=== PATIENT | male | born 1975 | race Caucasian/White ===

== ENCOUNTER 2019-04-27 23:54 | Inpatient (IN) ==
[2019-04-28] MEDS ORDERED: KETOROLAC 30 MG/ML VIAL IV STA (00:21)
[2019-04-28] MEDS ORDERED: SODIUM CHLORIDE 0.9% 1000ML 1,000 ML IV SCH (00:30)
[2019-04-28 00:45] LABS: Basophils # (auto) 0.01 K/uL (0-0.2); Basophils % (auto) 0.1 %; Eosinophils # (auto) 0.35 K/uL (0-0.5); Eosinophils % (auto) 3.1 %; Hematocrit (blood only) 35.3 % (42-52); Immature Granulocytes # (auto) 0.07 K/uL (0.00-0.02); Immature Granulocytes % (auto) 0.6 %; Lymphocytes # (auto) 1.23 K/uL (1.2-3.4); Lymphocytes % (auto) 10.8 %; Mean Corpuscular Volume 92.7 fL (80-100); Mean Platelet Volume 8.7 fL (7.4-10.4); Monocytes # (auto) 1.35 K/uL (0.11-0.59); Monocytes % (auto) 11.8 %; Neutrophils % (auto) 73.6 %; Platelet Count 347 K/uL (130-400); RDW Coefficient of Variation 14.1 % (11.5-14.5); RDW Standard Deviation 47.8 fL (36.4-46.3); Red Blood Count 3.81 M/uL (4.7-6.1); White Blood Count 11.41 K/uL (4.8-10.8)
[2019-04-28 01:03] LABS: Alanine Aminotransferase 26 U/L (12-78); Albumin Level 2.2 gm/dl (3.4-5.0); Aspartate Aminotransferase 15 U/L (15-37); BUN Creatinine Ratio 15.1 (10-20); Blood Urea Nitrogen 13 mg/dl (7-18); Calcium 7.9 mg/dl (8.5-10.1); Carbon Dioxide 27 mmol/L (21-32); Chloride 109 mmol/L (98-107); Est GFR (African American) 121.7; Glucose 108 mg/dl (70-99); Magnesium 2.1 mg/dl (1.8-2.4); Potassium 4.1 mmol/L (3.5-5.1); Sodium 139 mmol/L (136-145)
[2019-04-28 01:12] LABS: D Dimer 7550 ug/L FEU (0-500)
[2019-04-28 01:14] LABS: Albumin Globulin Ratio 0.5 (0.9-2); Alkaline Phosphatase 79 U/L (45-117); Bilirubin,Total 0.3 mg/dl (0.2-1); Globulin 4.2 gm/dl (2.5-4.0); Total Protein 6.4 gm/dl (6.4-8.2); Troponin I < 0.015 ng/ml (0-0.045)
[2019-04-28] MEDS ORDERED: OPTIRAY 320 125ml IV PRN (01:42)
[2019-04-28] MEDS ORDERED: PIPERACILL/TAZOBAC CONSULT ACTIVE PRN (03:02)
[2019-04-28] MEDS ORDERED: PIPERACILLIN/TAZOBACTAM 4.5 GM/120 ML BAG IV ONE (03:02)
[2019-04-28] MEDS ORDERED: VANCOMYCIN HCL 1,750 MG in SODIUM CHLORIDE 0.9% 500 ML IV ONE (03:02)
[2019-04-28] MEDS ORDERED: VANCOMYCIN CONSULT ACTIVE PRN ×2 (03:02→05:01)
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
[2019-04-28] MEDS ORDERED: VANCOMYCIN HCL 1,000 MG in SODIUM CHLORIDE 0.9% 250 ML IV SCH (05:01)
[2019-04-28] MEDS ORDERED: ACETAMINOPHEN 325 MG TAB PO PRN (05:01)
[2019-04-28] MEDS ORDERED: ONDANSETRON INJ 2 MG/ML 2 ML VIAL IV PRN (05:01)
[2019-04-28] MEDS ORDERED: ALBUT/IPRATROP 3MG/0.5MG NEB 3 ML VIAL INH PRN (05:01)
[2019-04-28] MEDS ORDERED: MoRPHine SULFATE 4 MG/ML 1 ML CARP\\VIAL IV PRN (05:01)
[2019-04-28] MEDS ORDERED: NITROGLYCERIN SL 0.4 MG/TAB TAB SL PRN (05:01)
[2019-04-28 05:23] LABS: Appearance Urine Clear (Clear); Bacteria Urine Automated Negative (Negative); Bilirubin Urine Negative (Negative); Blood Urine 2+ (Negative); Color Urine Yellow; Epithelial Cell Urine Auto 0-5 /lpf (0-5); Glucose Urine UA Negative (Negative); Ketones Urine Negative (Negative); Leukocyte Esterase Urine Negative (Negative); Nitrite Urine Negative (Negative); Protein Urine Negative (Negative); RBC Urine Automated >30 /hpf (0-4); Specific Gravity Urine 1.025 (1.000-1.030); Urobilinogen Urine Negative (Negative); pH Urine 7.5 (4.5-7.5)
[2019-04-28] MEDS ORDERED: VANCOMYCIN HCL 2,000 MG in SODIUM CHLORIDE 0.9% 500 ML IV ONE (05:30)
[2019-04-28] MEDS ORDERED: LEVOFLOXACIN CONSULT ACTIVE PRN (05:31)
[2019-04-28] MEDS: SODIUM CHLORIDE 0.9% 1000ML 1,000 ML IV SCH ×2 (05:44→20:02)
--- NOTE | 2019-04-28 07:17 | CT Scan Report ---
CT ANGIOGRAM OF THE CHEST CLINICAL HISTORY: Atypical chest pain. Dyspnea. COMPARISON STUDY: Chest x-ray dated 04/28/2019. TECHNIQUE: Following the IV administration of 90 cc of Optiray 320, CT angiogram of the chest was per formed from the upper abdomen to the thoracic inlet utilizing the pulmonary embolus protocol. Images are reviewed in the axial, sagittal, and coronal planes. 3-D MIPS images are created and assessed. IV contrast was administered without complication. A dose lowering technique was utilized adhering to the principles of ALARA. CT DOSE: 452.09 mGy.cm FINDINGS: Thyroid: Imaged portions of the thyroid gland are normal in size and attenuation. Thoracic aorta: The thoracic aorta is normal in caliber and demonstrates standard 3-vessel arch anato my. No dissection is seen. Pulmonary vasculature: The pulmonary trunk is normal in caliber. There are no filling defects identif ied in main, lobar, or segmental pulmonary branches to suggest pulmonary embolus. Heart: The heart is normal in size and there is a moderate pericardial effusion. Lungs and pleural spaces: Mild emphysematous change is identified. There is a multiloculated pleural effusion at the left lung base with associated left basilar consolidation. Loculated fluid is seen al georgina the left major fissure. Trace pleural perfusion is seen on the right. Mild diffuse peribronchial thickening is noted. The trachea and central airways are clear. Fluid/secretions are present within t he left lower lobe airways. Mediastinum: There is no mediastinal lymphadenopathy. Umu: Mildly enlarged left hilar nodes measure up to 13 mm in short axis. No right hilar adenopathy i s seen. Axillae: There is no axillary lymphadenopathy. Upper abdomen: Partially visualized upper abdominal viscera is within normal limits. Skeletal structures: No lytic or blastic bony lesions are seen. IMPRESSION: 1. There is no evidence of pulmonary embolus in the main, lobar, or segmental pulmonary arteries. 2. Emphysema. 3. There is a small and multiloculated pleural effusion identified at the left lung base with [facility] left basilar consolidation. Correlate clinically for evidence of pneumonia. The sterility of the pleural effusion cannot be assessed by CT. 4. Trace pleural fluid is seen in the right lung base. 5. Mild diffuse peribronchial thickening suggests reactive airway disease. Clinical correlation will be required. 6. Fluid/secretions are seen throughout the left lower lobe airways. Correlate clinically for evidenc e of aspiration. 7. There is a moderate pericardial effusion. 8. Mildly enlarged left hilar lymph nodes are likely on a reactive basis. Electronically signed by: Romeo Carranza M.D. 04/28/2019 7:15 AM
--- NOTE | 2019-04-28 07:20 | Hospitalist Progress Note ---
Date of Service April 28, 2019 Assessment & Plan (1) Atypical chest pain: (2) Pleural effusion: (3) Pericardial effusion: Admitted p MN will follow, Pulm to see ROS-No Headache, No Visual Changes, No Nausea, No Vomiting, No Fever, No Chills, No Neck Pain or Stiffness, Pleuritic Chest Pain, No Palpitations, +SOB, +SANCHEZ, +Cough, No Sputum, No Wheezing, No Abdominal Pain, No Diarrhea, No Hematemesis, No Hemoptysis, No Unexpected Weight Loss, No Flank pain, No Melena, No Hematochezia, No Frequency, No Urgency, No Burning, No Hematuria, No Rashes, No Diaphoresis. Appetite is Normal Physical Exam Gen-AAO x 3, NAD, Afebrile Head-NCAT, EOMI, PERRLA, Anicteric Sclera, No Posterior Pharyngeal Erythema Neck-Supple, No JVD, No Thyromegaly, No Masses, No LAD, No Bruits Lungs-L Rales, No Rhonchi, No Wheezing, No Crepitus Chest-No S4, +S1, +S2, No S3, No Murmurs, No Rubs, No Gallops, No Ectopy Abdomen-Soft, Bowel Sounds Present, Non Tender, Non Distended, No Hepatomegaly, No Splenomegaly, No Palpable Masses, No Rebound, No Rigidity, No Guarding Musculoskeletal-Full Range of Motion Bilaterally, No CVAT Extremities-No Cyanosis, No Clubbing, No Edema Nuero-Cranial Nerves II-XII grossly intact, Motor WNL, DTRs WNL, Strength WNL, Non Focal Psych-Normal Mood Results & Data Vital Signs (Past 12 Hours) Vital Signs Temp Pulse Pulse Resp BP BP Pulse Ox 04/28/19 05:16 36.8 C 81 124/77 95 04/28/19 04:13 83 18 131/80 96 04/28/19 03:00 94 H 22 137/84 97 04/28/19 02:30 90 19 126/78 95 04/28/19 02:00 87 25 H 130/76 97 04/28/19 01:42 95 H 26 H 145/82 H 98 04/28/19 01:30 91 H 23 132/83 04/28/19 01:00 107 H 29 H 140/100 97 04/28/19 00:32 100 H 27 H 96 04/28/19 00:30 101 H 30 H 132/78 96 04/27/19 23:57 37.4 C 108 H 18 147/90 H 97
[2019-04-28] MEDS: LEVALBUTEROL TARTRATE 15 GM HFA.AER.AD INH SCH ×4 (08:58→20:01)
[2019-04-28] MEDS: LEVOFLOXACIN/D5W 750 MG/150 ML BAG IV SCH (08:58)
--- NOTE | 2019-04-28 10:32 | XRay Report ---
SINGLE VIEW CHEST CLINICAL HISTORY: Atypical chest pain. FINDINGS: An AP, portable, upright chest radiograph is obtained. No prior studies are available for c omparison at the time of dictation. The examination is degraded by portable technique and patient rot ation. The cardiomediastinal silhouette is unremarkable. There is left basilar consolidation and a s mall left pleural effusion. The right lung appears clear. No pneumothorax is seen. The bony thorax is grossly intact. IMPRESSION: There is a left pleural effusion with left basilar consolidation. Correlate clinically fo r evidence of pneumonia/aspiration pneumonitis. Radiographic follow-up to resolution is recommended. Electronically signed by: Romeo Carranza M.D. 04/28/2019 10:31 AM
[2019-04-28] MEDS: VANCOMYCIN HCL 1,250 MG in SODIUM CHLORIDE 0.9% 250 ML IV SCH ×2 (12:17→20:01)
--- NOTE | 2019-04-28 12:21 | Pulmonary Consultation ---
Date of Consultation April 28, 2019 Assessment & Plan (1) Pleural effusion: Impression: 1. Multiple pockets of small pleural effusion on the left with compressive atelectasis representing empyema versus inflammatory disease. 2. Left lower lobe compressive atelectasis. Is likely a remnant from recently incompletely treated pneumonia. 3. Pericardial effusion, etiology is unknown. But small. 4. Nicotine addiction. 5. COPD, cannot determine gold level. Plan: 1. Consult thoracic surgery for VATS. 2. Pleural effusion is not amenable for thoracentesis. 3. Antibiotic can be changed to oral Levaquin. 4. Smoking cessation. 5. Bronchodilators. Thank you, will follow as needed. History of Present Illness Reason for Consultation: Pleural effusion Requesting Physician: Dr. Edmond Attending Physician: Ramone Grajeda DO History of Present Illness Dear Dr. Edmond: Thank you for the kind referral of Mr. Smith to pulmonary service. This is 43-year-old gentleman active smoker for the past 30 years, history of a week of increasing shortness of breath accompanied with persistent cough. Pleuritic chest pain was reported as well. The patient denies any chest pain, in the substernal area. His symptoms accompanied with low-grade fever reported at the [facility] where [facility] is [facility] resides. The patient did not have history of pneumonia in the past, no hemoptysis reported no postnasal drip no nausea or vomiting reported either. He has no weight loss but he has a lack of appetite. The pain has been persistent and he was recently treated with Augmentin sort of bronchitis. The patient presented to the hospital and underwent work-up which showed loculated pleural effusion on the left with thickened pleura. The patient has no history of tuberculosis, he did not travel or had history of exposure to TB in the past although he has been incarcerated but no symptoms and signs of chronic cough. His past medical history significant for active smoking, chronic bronchitis. He has been given a rescue inhaler which he has not used. Although it did help him once or twice before. He is active smoker with more than [id number] history. Family history consistent with COPD where his mother 6 months ago from COPD exacerbation. Allergies Allergy/AdvReac Type Severity Reaction Status Date / Time No Known Allergies Allergy Unverified 04/28/19 00:42 Home Medications Home Medications Medication Instructions Recorded Confirmed Type ipratropium-albuterol 3 ml INHALATION QID PRN 04/28/19 04/28/19 History levalbuterol tartrate [Xopenex HFA] 2 inh INHALATION QID 04/28/19 04/28/19 History Patient History Social History Preferred Language: Hungarian Communication Ability: Effective Beliefs That Will Affect Care: None Current Living Situation: Other Current Living Situation Comment: [facility] Feels Safe at Home: Yes Smoking Status: Current every day smoker Do You Dip or Chew Tobacco: No Second Hand Exposure: No Review of Systems Review of Systems: Review of system otherwise was unremarkable including 14 systems. Physical Exam Physical Exam: Vital signs are stable, S1-S2 regular rate and rhythm, lungs with diminished breath sounds bilaterally, abdomen is benign, no edema in the periphery, neurologically is intact, he is in good mood, competent to make a decision, no oral lesions, no constitutional symptoms. No lymphadenopathy in the neck area. Results & Data Vital Signs (Past 12 Hours) Vital Signs Temp Pulse Pulse Resp BP BP Pulse Ox 04/28/19 09:00 76 04/28/19 08:24 37.4 C 85 19 149/88 H 96 04/28/19 05:16 36.8 C 81 124/77 95 04/28/19 04:13 83 18 131/80 96 04/28/19 03:00 94 H 22 137/84 97 04/28/19 02:30 90 19 126/78 95 04/28/19 02:00 87 25 H 130/76 97 04/28/19 01:42 95 H 26 H 145/82 H 98 04/28/19 01:30 91 H 23 132/83 04/28/19 01:00 107 H 29 H 140/100 97 04/28/19 00:32 100 H 27 H 96 04/28/19 00:30 101 H 30 H 132/78 96 Laboratory Results Slight leukocytosis, left shift but no bandemia. His BMP are stable. Diagnostic Findings Chest x-ray and CAT scan of the chest both reviewed personally which showed loculated pleural effusion with multiple pockets affecting the left lower lobe with compressive atelectasis.
--- NOTE | 2019-04-28 15:13 | Pharmacy Report ---
Pharmacy Abx Initial Consult - Date of Service April 28, 2019 - Pharmacy Dosing Scope Date of Consult: 04/28/19 Consultation requested by: Dr. Edmond Pharmacy is consulted to initiate Vancomycin and Levaquin IV dosing therapy, order appropriate labs and adjust drug dose/frequency. - Subjective The patient is a 43 year old M admitted on 04/28/19 03:38. - Objective Height: 6 ft 2 in Weight: 89.2 kg Vital Signs (Past 12hrs): Vital Signs Temp Pulse Pulse Resp BP BP Pulse Ox 04/28/19 12:49 37.0 C 88 19 144/85 H 97 04/28/19 09:00 76 04/28/19 08:24 37.4 C 85 19 149/88 H 96 04/28/19 05:16 36.8 C 81 124/77 95 04/28/19 04:13 83 18 131/80 96 04/28/19 03:00 94 H 22 137/84 97 Lab Results (24hrs): Laboratory Tests (24 Hours) 04/28/19 04/28/19 00:37 00:37 WBC 11.41 H Neut # (Auto) 8.40 H Creatinine 0.87 Est Cr Clr Drug Dosing 126.0 Micro Results: 04/28/19 12:15 Gram Stain - Final Sputum, Expectorated Sputum Culture - Pending 04/28/19 00:37 Aerobic Blood Culture - Pending Blood Anaerobic Blood Culture - Pending 04/28/19 00:53 Aerobic Blood Culture - Pending Blood Anaerobic Blood Culture - Pending - Risk Factors for Resistance * Resident in a alf or extended-care facility -> incarcerated * Recent failed Augmentin prior to admission - Assessment & Plan Assessment 43 year old M on empiric IV Vancomycin and Levaquin for pneumonia after failed outpatient treatment with Augmentin * He received Vancomycin 1750mg (~20mg/kg) IV x 1 as a loading dose in the ED Plan Vancomycin IV * Estimated PK Parameters: Andrea 0.104 hr-1, t1/2 6.7 hr * Maintenance dose: 1250 mg IV (~14 mg/kg) every 8 hours * Goal trough level for pneumonia : 15 to 20 mcg/mL * Trough level ordered for 04/29/19 @ 1130 (prior to 4th dose and should be reflective of steady state) * Note: MRSA nasal swab was negative, indicating that MRSA unlikely cause for pneumonia. Recommend to consider D/C Vancomycin. Levaquin * No renal impairment noted * Levaquin 750mg IV q24 appropriate - no renal adjustments needed Pharmacy will continue to follow and will adjust dose/frequency as necessary. Thank you.
--- NOTE | 2019-04-29 02:09 | Emergency Department Note ---
History of Present Illness General Chief complaint: GI Assessment Stated complaint: ABD PAIN Time Seen by Provider: 04/28/19 00:06 History of Present Illness Maximum Pain Intensity: 3 This is a 43-year-old male patient presenting from [facility] for evaluation of fever and chest pain. The patient has had some mild symptoms that began about 1 week ago. He put in a sick call and was seen at the [facility] where chest x-ray was performed and was essentially normal. The patient was started on Augmentin, and has been taking the medication as prescribed. The patient does have a history of tobacco use and intermittent coughing, however the coughing seems to be worsened over the past 1 to 2 days. He went back to the [facility] and was noted to have a fever of 101.6, and thus was sent to the ER for evaluation. The patient states that certain movements with laying flat and sitting up improve or worsen his pain. He does have some epigastric abdominal discomfort, but no lower discomfort reported. He has been eating, drinking, and using the bath room as normal. He rates his current discomfort a 3/10. Home Medications Home Medications Medication Instructions Recorded Confirmed Type ipratropium-albuterol 3 ml INHALATION QID PRN 04/28/19 04/28/19 History levalbuterol tartrate [Xopenex HFA] 2 inh INHALATION QID 04/28/19 04/28/19 History Allergies Allergy/AdvReac Type Severity Reaction Status Date / Time No Known Allergies Allergy Unverified 04/28/19 00:42 Past Med/Surg History Medical History Tobacco use disorder No significant past surgical history Social History Preferred Language: Chadian Communication Ability: Effective Beliefs That Will Affect Care: None Current Living Situation: Other Current Living Situation Comment: [facility] Feels Safe at Home: Yes Smoking Status: Current every day smoker Do You Dip or Chew Tobacco: No Second Hand Exposure: No Review of Systems A total of 10 systems reviewed and were otherwise negative Physical Exam Vital Signs Vital Signs - 24 hr 04/28/19 02:30 04/28/19 03:00 Pulse Rate 90 94 H Pulse Rate from SpO2 Sensor 89 93 H Respiratory Rate 19 22 Blood Pressure 126/78 137/84 Blood Pressure Mean 94 101 Pulse Oximetry 95 97 VITALS: Vitals are noted on the nurse's note and reviewed by myself. Vital signs stable. GENERAL: Well-developed, well-nourished, white male, who appears ill HEAD: Normocephalic atraumatic. EARS: External ear normal. External auditory canals clear, tympanic membranes pearly brown without erythema or effusion bilaterally. EYES: Pupils equal round and reactive to light and accommodation. Conjunctivae without injection, sclerae without icterus. Extraocular movements intact. NOSE: Patent, turbinates without inflammation or discharge. MOUTH: Mucous membranes moist. Tonsils are not enlarged. Pharynx without erythema, blood, or exudate. Uvula midline. Airway patent. NECK: Supple without nuchal rigidity. No lymphadenopathy. No thyromegaly. Cervical spine is nontender. HEART: Regular rate and rhythm without murmurs gallops or rubs. LUNGS: Upper lung holm sound distant but overall clear. Significantly diminished lung sounds in the lower holm ABDOMEN: Positive normal bowel sounds x 4. Soft, nontender, without masses or organomegaly. No guarding or rebound tenderness. MUSCULOSKELETAL: No muscle atrophy, erythema, or edema noted. Full range of motion in all extremities. NEURO: Patient was alert and oriented to person place and time. CN II through XII grossly intact. Course Administered Medications Acetaminophen (Tylenol) 650 mg PO Q4H PRN PRN Reason: Pain or Fever Stop: 05/28/19 05:00 Last Admin: 04/28/19 18:03 Dose: 650 mg Documented by: [id number] Levofloxacin/Dextrose (Levaquin/D5w) 750 mg in 150 mls @ 100 mls/hr IV Q24H [facility] Stop: 05/05/19 07:59 Last Infusion: 04/28/19 10:30 Dose: 0 mls/hr Documented by: [id number] Admin: 04/28/19 08:58 Dose: 100 mls/hr Documented by: [id number] Sodium Chloride (Nss 1000ml) 1,000 mls @ 75 mls/hr IV .[id number] [facility] Stop: 05/28/19 19:00 Last Admin: 04/28/19 20:02 Dose: 75 mls/hr Documented by: [id number] Infusion: 04/28/19 19:04 Dose: 75 mls/hr Documented by: [id number] Admin: 04/28/19 05:44 Dose: 75 mls/hr Documented by: [id number] Vancomycin HCl 1,250 mg/ (Sodium Chloride) 275 mls @ 125 mls/hr IV Q8H [facility] Stop: 05/05/19 11:59 Last Infusion: 04/28/19 22:30 Dose: 0 mls/hr Documented by: [id number] Admin: 04/28/19 20:01 Dose: 125 mls/hr Documented by: [id number] Infusion: 04/28/19 14:40 Dose: 0 mls/hr Documented by: [id number] Admin: 04/28/19 12:17 Dose: 125 mls/hr Documented by: [id number] Levalbuterol HCl (Xopenex Hfa) 2 puffs INH QID [facility] Stop: 05/28/19 08:59 Last Admin: 04/28/19 20:01 Dose: 2 puffs Documented by: [id number] Admin: 04/28/19 18:02 Dose: 2 puffs Documented by: [id number] Admin: 04/28/19 12:19 Dose: 2 puffs Documented by: [id number] Admin: 04/28/19 08:58 Dose: 2 puffs Documented by: [id number] Discontinued Medications Sodium Chloride (Nss 1000ml) 1,000 mls @ 999 mls/hr IV .Q1H1M [facility] Stop: 04/28/19 01:30 Last Infusion: 04/28/19 02:29 Dose: 0 mls/hr Documented by: [id number] Admin: 04/28/19 01:24 Dose: 999 mls/hr Documented by: [id number] Vancomycin HCl 1,750 mg/ (Sodium Chloride) 535 mls @ 200 mls/hr IV NOW ONE; Protocol Stop: 04/28/19 05:42 Last Infusion: 04/28/19 07:54 Dose: 0 mls/hr Documented by: [id number] Admin: 04/28/19 04:20 Dose: 200 mls/hr Documented by: [id number] Piperacillin Sod/Tazobactam Sod (Zosyn) 4.5 gm in 120 mls @ 240 mls/hr IV NOW ONE Stop: 04/28/19 03:31 Last Infusion: 04/28/19 04:11 Dose: 0 mls/hr Documented by: [id number] Admin: 04/28/19 03:26 Dose: 240 mls/hr Documented by: [id number] Ioversol (Optiray 320 125ml) 90 ml IV ONCE PRN PRN Reason: Interaction Checking Stop: 05/02/19 01:41 Last Admin: 04/28/19 01:43 Dose: 90 ml Documented by: [id number] Ketorolac Tromethamine (Toradol) 30 mg IV NOW STA Stop: 04/28/19 00:22 Last Admin: 04/28/19 01:24 Dose: 30 mg Documented by: [id number] Medical Decision Making Differential Diagnosis Differential diagnosis: Etiologies such as viral syndrome, otitis, pharyngitis, pneumonia, influenza, meningitis, urinary tract infection, septic arthritis, soft tissue infectious process, intra-abdominal process, sepsis, bacteremia, as well as others were entertained. Laboratory Data Result diagrams: 04/28/19 00:37 04/28/19 00:37 Lab Results 04/28/19 04/28/19 04/28/19 Range/Units 00:37 00:37 00:37 WBC 11.41 H (4.8-10.8) K/uL RBC 3.81 L (4.7-6.1) M/uL Hgb 12.0 L (14.0-18.0) g/dL Hct 35.3 L (42-52) % MCV 92.7 (80-100) fL MCH 31.5 (25-34) pg MCHC 34.0 (32-36) g/dL RDW Std Deviation 47.8 H (36.4-46.3) fL RDW Coeff of Jose Antonio 14.1 (11.5-14.5) % Plt Count 347 (130-400) K/uL MPV 8.7 (7.4-10.4) fL Immature Gran % (Auto) 0.6 % Neut % (Auto) 73.6 % Lymph % (Auto) 10.8 % Ector % (Auto) 11.8 % Eos % (Auto) 3.1 % Baso % (Auto) 0.1 % Immature Gran # (Auto) 0.07 H (0.00-0.02) K/uL Neut # (Auto) 8.40 H (1.4-6.5) K/uL Lymph # (Auto) 1.23 (1.2-3.4) K/uL Ector # (Auto) 1.35 H (0.11-0.59) K/uL Eos # (Auto) 0.35 (0-0.5) K/uL Baso # (Auto) 0.01 (0-0.2) K/uL D-Dimer 7550 H* (0-500) ug/L FEU Sodium 139 (136-145) mmol/L Potassium 4.1 (3.5-5.1) mmol/L Chloride 109 H (98-107) mmol/L Carbon Dioxide 27 (21-32) mmol/L Anion Gap 3.0 (3-11) BUN 13 (7-18) mg/dl Creatinine 0.87 (0.6-1.4) mg/dl Est Cr Clr Drug Dosing 126.0 ml/min Est GFR ( Amer) 121.7 Est GFR (Non-Af Amer) 105.0 BUN/Creatinine Ratio 15.1 (10-20) Glucose 108 H (70-99) mg/dl Lactate (0.4-2.0) mmol/L Calcium 7.9 L (8.5-10.1) mg/dl Magnesium 2.1 (1.8-2.4) mg/dl Total Bilirubin 0.3 (0.2-1) mg/dl AST 15 (15-37) U/L ALT 26 (12-78) U/L Alkaline Phosphatase 79 (45-117) U/L Troponin I < 0.015 (0-0.045) ng/ml Total Protein 6.4 (6.4-8.2) gm/dl Albumin 2.2 L (3.4-5.0) gm/dl Globulin 4.2 H (2.5-4.0) gm/dl Albumin/Globulin Ratio 0.5 L (0.9-2) Lipase 83 (73-393) U/L TSH 1.090 (0.300-4.500) uIu/ml 04/28/19 Range/Units 00:37 WBC (4.8-10.8) K/uL RBC (4.7-6.1) M/uL Hgb (14.0-18.0) g/dL Hct (42-52) % MCV (80-100) fL MCH (25-34) pg MCHC (32-36) g/dL RDW Std Deviation (36.4-46.3) fL RDW Coeff of Jose Antonio (11.5-14.5) % Plt Count (130-400) K/uL MPV (7.4-10.4) fL Immature Gran % (Auto) % Neut % (Auto) % Lymph % (Auto) % Ector % (Auto) % Eos % (Auto) % Baso % (Auto) % Immature Gran # (Auto) (0.00-0.02) K/uL Neut # (Auto) (1.4-6.5) K/uL Lymph # (Auto) (1.2-3.4) K/uL Ector # (Auto) (0.11-0.59) K/uL Eos # (Auto) (0-0.5) K/uL Baso # (Auto) (0-0.2) K/uL D-Dimer (0-500) ug/L FEU Sodium (136-145) mmol/L Potassium (3.5-5.1) mmol/L Chloride (98-107) mmol/L Carbon Dioxide (21-32) mmol/L Anion Gap (3-11) BUN (7-18) mg/dl Creatinine (0.6-1.4) mg/dl Est Cr Clr Drug Dosing ml/min Est GFR ( Amer) Est GFR (Non-Af Amer) BUN/Creatinine Ratio (10-20) Glucose (70-99) mg/dl Lactate 1.1 (0.4-2.0) mmol/L Calcium (8.5-10.1) mg/dl Magnesium (1.8-2.4) mg/dl Total Bilirubin (0.2-1) mg/dl AST (15-37) U/L ALT (12-78) U/L Alkaline Phosphatase (45-117) U/L Troponin I (0-0.045) ng/ml Total Protein (6.4-8.2) gm/dl Albumin (3.4-5.0) gm/dl Globulin (2.5-4.0) gm/dl Albumin/Globulin Ratio (0.9-2) Lipase (73-393) U/L TSH (0.300-4.500) uIu/ml Imaging Data Radiologist's Impression: SINGLE VIEW CHEST CLINICAL HISTORY: Atypical chest pain. FINDINGS: An AP, portable, upright chest radiograph is obtained. No prior studies are available for comparison at the time of dictation. The examination is degraded by portable technique and patient rotation. The cardiomediastinal silhouette is unremarkable. There is left basilar consolidation and a small left pleural effusion. The right lung appears clear. No pneumothorax is seen. The bony thorax is grossly intact. IMPRESSION: There is a left pleural effusion with left basilar consolidation. Correlate clinically for evidence of pneumonia/aspiration pneumonitis. Radiographic follow-up to resolution is recommended. CT ANGIOGRAM OF THE CHEST CLINICAL HISTORY: Atypical chest pain. Dyspnea. COMPARISON STUDY: Chest x-ray dated 04/28/2019. TECHNIQUE: Following the IV administration of 90 cc of Optiray 320, CT angiogram of the chest was performed from the upper abdomen to the thoracic inlet utilizing the pulmonary embolus protocol. Images are reviewed in the axial, sagittal, and coronal planes. 3-D MIPS images are created and assessed. IV co ntrast was administered without complication. A dose lowering technique was utilized adhering to the principles of ALARA. CT DOSE: 452.09 mGy.cm FINDINGS: Thyroid: Imaged portions of the thyroid gland are normal in size and attenuation. Thoracic aorta: The thoracic aorta is normal in caliber and demonstrates standard 3-vessel arch anatomy. No dissection is seen. Pulmonary vasculature: The pulmonary trunk is normal in caliber. There are no filling defects identified in main, lobar, or segmental pulmonary branches to suggest pulmonary embolus. Heart: The heart is normal in size and there is a moderate pericardial effusion. Lungs and pleural spaces: Mild emphysematous change is identified. There is a multiloculated pleural effusion at the left lung base with associated left basilar consolidation. Loculated fluid is seen along the left major fissure. Trace pleural perfusion is seen on the right. Mild diffuse peribronchial thickening is noted. The trachea and central airways are clear. Fluid/secretions are present within the left lower lobe airways. Mediastinum: There is no mediastinal lymphadenopathy. Umu: Mildly enlarged left hilar nodes measure up to 13 mm in short axis. No right hilar adenopathy is seen. Axillae: There is no axillary lymphadenopathy. Upper abdomen: Partially visualized upper abdominal viscera is within normal limits. Skeletal structures: No lytic or blastic bony lesions are seen. IMPRESSION: 1. There is no evidence of pulmonary embolus in the main, lobar, or segmental pulmonary arteries. 2. Emphysema. 3. There is a small and multiloculated pleural effusion identified at the left lung base with associated left basilar consolidation. Correlate clinically for evidence of pneumonia. The sterility of the pleural effusion cannot be assessed by CT. 4. Trace pleural fluid is seen in the right lung base. 5. Mild diffuse peribronchial thickening suggests reactive airway disease. Clinical correlation will be required. 6. Fluid/secretions are seen throughout the left lower lobe airways. Correlate clinically for evidence of aspiration. 7. There is a moderate pericardial effusion. 8. Mildly enlarged left hilar lymph nodes are likely on a reactive basis. ECG Data Additional Comments: Sinus tachycardia @102bpm Otherwise normal ECG No previous ECGs available MDM Narrative Physical exam and history were performed. Nursing notes, EMR, and Medication List were personally reviewed. Patient appears to have had illness symptoms for the past week. He is currently under the care of [facility], and has been on antibiotics for the past week. On exam he does have some tachycardia but no fever here in the ER. He does have diminished breath sounds in the lower holm of the lungs. IV access was established and labs were obtained. He was given IV Toradol and IV saline for comfort. Chest x-ray was performed. EKG as above. The patient's blood work is as above and was reviewed. He does have a minimally elevated white blood cell count of 11.4. Hemoglobin is 12.0. He does not have a gross electrolyte imbalance. Lactic acid and troponin x1 are negative. Urine is without evidence of infection. X-ray was reviewed by myself and radiology. The patient has a large pleural effusion with consolidation in the left lower lobe. His d-dimer did return at over 7000, and because of this we did elect to perform CT scan of the chest. CT scan was reviewed and does not show evidence of acute pulmonary emboli. CT scan is concerning for a multiloculated effusion and continues with concern for pneumonia. CT also shows a moderate pericardial effusion as well as additional findings as above. The patient was started on IV vancomycin and IV Zosyn as he seems to have failed outpatient Augmentin. Because of his worsening symptoms and findings on imaging the case was discussed with the on-call hospitalist. Please see the hospitalist dictation for further patient course, plan, and disposition. The chart was completed utilizing [employer] Voice Recognition Software. Grammatical errors, random word insertions, pronoun errors, and incomplete sentences are an occasional consequence of this system due to software limitations, ambient noise, and hardware issues. Any formal questions or concerns about the content, text, or information contained within the body of this dictation should be directly addressed to the provider for clarification. . Impression & Plan Atypical chest pain, Pleural effusion, Pericardial effusion, Failure of outpatient treatment Discharge Plan Visit Data *Final* Discharge Date/Time: 04/28/19 04:13 Chief Complaint: GI Assessment Stated Complaint: ABD PAIN ED Provider: Denise Hurt ED Midlevel Provider: Seth Clay Discharge Problem: Atypical chest pain, Pleural effusion, Pericardial effusion, Failure of outpatient treatment Patient Disposition: Admitted As Inpatient Discharge Instructions Interventions: ED Discharge Assessment Last Done: 04/28/19 04:13
[2019-04-29] MEDS: VANCOMYCIN HCL 1,250 MG in SODIUM CHLORIDE 0.9% 250 ML IV SCH ×2 (03:25→12:30)
[2019-04-29 05:26] LABS: Basophils # (auto) 0.01 K/uL (0-0.2); Basophils % (auto) 0.1 %; Eosinophils % (auto) 4.4 %; Hematocrit (blood only) 34.4 % (42-52); Hemoglobin 11.6 g/dL (14.0-18.0); Immature Granulocytes # (auto) 0.05 K/uL (0.00-0.02); Immature Granulocytes % (auto) 0.4 %; Lymphocytes # (auto) 2.21 K/uL (1.2-3.4); Lymphocytes % (auto) 16.1 %; Mean Corpuscular Hgb Conc 33.7 g/dL (32-36); Mean Platelet Volume 8.4 fL (7.4-10.4); Monocytes # (auto) 1.58 K/uL (0.11-0.59); Monocytes % (auto) 11.5 %; Neutrophils # (auto) 9.29 K/uL (1.4-6.5); Neutrophils % (auto) 67.5 %; Platelet Count 335 K/uL (130-400); RDW Coefficient of Variation 14.2 % (11.5-14.5); RDW Standard Deviation 48.3 fL (36.4-46.3); White Blood Count 13.74 K/uL (4.8-10.8)
[2019-04-29 05:43] LABS: BUN Creatinine Ratio 12.9 (10-20); Creatinine Clr Calc Pharmacy 128.9 ml/min; Est GFR (African American) 122.8
[2019-04-29] MEDS: SODIUM CHLORIDE 0.9% 1000ML 1,000 ML IV SCH ×2 (05:43→21:06)
[2019-04-29] MEDS: LEVOFLOXACIN/D5W 750 MG/150 ML BAG IV SCH (09:07)
[2019-04-29] MEDS: LEVALBUTEROL TARTRATE 15 GM HFA.AER.AD INH SCH ×4 (09:19→21:07)
--- NOTE | 2019-04-29 09:55 | Hospitalist Progress Note ---
Date of Service April 29, 2019 Assessment & Plan (1) Atypical chest pain: (2) Pleural effusion: (3) Pericardial effusion: (4) Empyema lung: (5) Leukocytosis: Feeling a little better, CT Surgery to see, possible VATS Labs checked, WBCs are higher, Continue Abx, Likely Empyema ROS-No Headache, No Visual Changes, No Nausea, No Vomiting, No Fever, No Chills, No Neck Pain or Stiffness, Still c Pleuritic Chest Pain, No Palpitations, Less SOB, Less SANCHEZ, +Cough, No Sputum, No Wheezing, No Abdominal Pain, No Diarrhea, No Hematemesis, No Hemoptysis, No Unexpected Weight Loss, No Flank pain, No Melena, No Hematochezia, No Frequency, No Urgency, No Burning, No Hematuria, No Rashes, No Diaphoresis. Appetite is Normal Physical Exam Gen-AAO x 3, NAD, Afebrile Head-NCAT, EOMI, PERRLA, Anicteric Sclera, No Posterior Pharyngeal Erythema Neck-Supple, No JVD, No Thyromegaly, No Masses, No LAD, No Bruits Lungs-L Rales, No Rhonchi, No Wheezing, No Crepitus Chest-No S4, +S1, +S2, No S3, No Murmurs, No Rubs, No Gallops, No Ectopy Abdomen-Soft, Bowel Sounds Present, Non Tender, Non Distended, No Hepatomegaly, No Splenomegaly, No Palpable Masses, No Rebound, No Rigidity, No Guarding Musculoskeletal-Full Range of Motion Bilaterally, No CVAT Extremities-No Cyanosis, No Clubbing, No Edema Nuero-Cranial Nerves II-XII grossly intact, Motor WNL, DTRs WNL, Strength WNL, Non Focal Psych-Normal Mood Results & Data Vital Signs (Past 12 Hours) Vital Signs Temp Pulse Pulse Resp BP Pulse Ox 04/29/19 07:28 36.9 C 85 18 125/81 95 04/29/19 03:07 37.1 C 89 16 136/81 94 04/29/19 02:53 78 04/28/19 23:03 36.9 C 88 18 122/80 93
[2019-04-29] MEDS ORDERED: VANCOMYCIN TROUGH ONE (11:30)
--- NOTE | 2019-04-29 20:32 | Consultation Report ---
DATE OF CONSULTATION: 04/29/2019 DATE OF CONSULTATION: 04/29/2019 REASON FOR CONSULTATION: Complicated left lower lobe process with probable empyema. HISTORY OF PRESENT ILLNESS: Mr. Smith is a 43-year-old inmate who has a 30-year history of smoking about a pack of cigarettes a day who developed increasing shortness of breath for last week or so and had persistent cough with some pleuritic left-sided chest pain. He also had a fever with some night sweats. He was anorexic. He denies hemoptysis, but he does have some purulent sputum upon, although it has not been excessive. He underwent an admission with an x-ray. He did have low-grade fevers at 37.4 when he was admitted. He has got a complicated left pleural effusion, more than likely representing an empyema. He was evaluated by Dr. Orlin Castrejon from a pulmonary standpoint and I am in agreement that this patient needs a surgical evaluation and probable thoracoscopic decortication. PAST MEDICAL HISTORY: 1. A [id number] history of cigarette smoking. 2. History of alcohol and marijuana use. PAST SURGICAL HISTORY: 1. Repair of fractured cervical spine from trauma. 2. Amputation of left fourth finger distally. MEDICATIONS: 1. Inhalers. ALLERGIES: No known drug allergies. SOCIAL HISTORY: The patient's him after he was incarcerated. The patient has 4 daughters. 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 He is from [place]. FAMILY MEDICAL HISTORY: The patient's mother at age 63 from emphysema and chronic obstructive pulmonary disease. She just about 6 months ago. The patient's father is 64 years old and without medical problems. The patient's 4 daughters are healthy. REVIEW OF SYSTEMS: The patient states he has not really lost any weight, although he has been anorexic. He has had no nausea, vomiting or diarrhea. He does have pleuritic chest pain laterally; however, he does not have substernal chest pain. He denies palpitations. He has had no visual or auditory changes, although he does wear glasses. He denies any neurologic changes such as focal deficits or seizures. He has had no skin breakdown. He has had no joint effusions. PHYSICAL EXAMINATION: GENERAL: This is a healthy appearing 6 feet 2 inch, 187 pound male who is awake, alert and oriented. He wears glasses. HEENT: Extraocular movements are intact. His teeth are actually in fairly good repair. He has no oral mucosal lesions. He has no oral candidiasis. His tongue is midline. He has no nasolabial flattening. NECK: Supple. I do not detect carotid bruits or lymphadenopathy. He has no neck vein distention or tracheal deviation. He has markedly decreased breath sounds in the left with some rhonchi. He does not have muffled heart tones. He has a regular rate and rhythm of his heart. I detect no significant rub. He does not exhibit signs of pulsus paradoxus. ABDOMEN: Soft and nontender. He has no crepitus over his chest. EXTREMITIES: He has no peripheral edema. He has excellent peripheral pulses. He has no joint effusions. NEUROLOGIC: Completely intact. DATA: I reviewed his CT scan and indeed he does have a small pleural effusion and he also has a complicated left pleural effusion with an infiltrative pattern. His white count this morning is 13,704 and the hemoglobin is stable 11.6. His electrolytes are essentially within normal limits with a BUN and creatinine of 11 and 0.85, sodium 136, bicarb 26. His cultures have been negative so far. He just has a sputum and 2 blood cultures. ASSESSMENT AND PLAN: 1. Probable left empyema. We are going to proceed with a left thoracoscopy with a decortication tomorrow afternoon. We had a long talk about this and went over risks and benefits and he understands.
[2019-04-29] MEDS: KETOROLAC 30 MG/ML VIAL IV PRN (21:14)
[2019-04-30 06:39] LABS: Basophils # (auto) 0.01 K/uL (0-0.2); Basophils % (auto) 0.1 %; Eosinophils % (auto) 4.1 %; Hematocrit (blood only) 33.1 % (42-52); Immature Granulocytes # (auto) 0.05 K/uL (0.00-0.02); Immature Granulocytes % (auto) 0.4 %; Lymphocytes # (auto) 2.28 K/uL (1.2-3.4); Lymphocytes % (auto) 18.6 %; Mean Corpuscular Hgb Conc 33.2 g/dL (32-36); Mean Corpuscular Volume 93.5 fL (80-100); Mean Platelet Volume 8.8 fL (7.4-10.4); Neutrophils # (auto) 7.85 K/uL (1.4-6.5); Neutrophils % (auto) 63.8 %; Platelet Count 359 K/uL (130-400); RDW Coefficient of Variation 14.1 % (11.5-14.5); RDW Standard Deviation 48.5 fL (36.4-46.3); Red Blood Count 3.54 M/uL (4.7-6.1); White Blood Count 12.29 K/uL (4.8-10.8)
--- NOTE | 2019-04-30 07:20 | History & Physical Bridge Note ---
Date of Service April 30, 2019 History & Physical Bridge Note I have examined the patient, reviewed the History & Physical and in the interval since the performance of the History & Physical I have noted the following changes of clinical significance: no changes noted
--- NOTE | 2019-04-30 08:04 | Hospitalist Progress Note ---
Date of Service April 30, 2019 Assessment & Plan (1) Atypical chest pain: (2) Pleural effusion: (3) Pericardial effusion: (4) Empyema lung: (5) Leukocytosis: Feeling a little better, CT Surgery will perform decortication today, Labs checked, WBCs are lower today, Continue Abx, Likely Empyema ROS-No Headache, No Visual Changes, No Nausea, No Vomiting, No Fever, No Chills, No Neck Pain or Stiffness, Still c Pleuritic Chest Pain, No Palpitations, Less SOB, Less SANCHEZ, +Cough, No Sputum, No Wheezing, No Abdominal Pain, No Diarrhea, No Hematemesis, No Hemoptysis, No Unexpected Weight Loss, No Flank pain, No Melena, No Hematochezia, No Frequency, No Urgency, No Burning, No Hematuria, No Rashes, No Diaphoresis. Appetite is Normal Physical Exam Gen-AAO x 3, NAD, Afebrile Head-NCAT, EOMI, PERRLA, Anicteric Sclera, No Posterior Pharyngeal Erythema Neck-Supple, No JVD, No Thyromegaly, No Masses, No LAD, No Bruits Lungs-L Rales, No Rhonchi, No Wheezing, No Crepitus, +Pleuritic CP Chest-No S4, +S1, +S2, No S3, No Murmurs, No Rubs, No Gallops, No Ectopy Abdomen-Soft, Bowel Sounds Present, Non Tender, Non Distended, No Hepatomegaly, No Splenomegaly, No Palpable Masses, No Rebound, No Rigidity, No Guarding Musculoskeletal-Full Range of Motion Bilaterally, No CVAT Extremities-No Cyanosis, No Clubbing, No Edema Nuero-Cranial Nerves II-XII grossly intact, Motor WNL, DTRs WNL, Strength WNL, Non Focal Psych-Normal Mood Results & Data Vital Signs (Past 12 Hours) Vital Signs Temp Pulse Pulse Resp BP Pulse Ox 04/30/19 07:20 36.6 C 73 20 131/82 95 04/30/19 07:15 77 04/30/19 04:00 37.1 C 82 18 114/70 94 04/30/19 00:17 80 04/29/19 23:07 36.9 C 82 20 117/72 96
--- NOTE | 2019-04-30 08:30 | Anesthesiology Consultation ---
Date of Service April 30, 2019 Assessment & Plan (1) Encounter for pre-operative examination: Chart Review Chart Review: Acceptable Risk for Surgery and Patient NOT seen in Pre Admission Testing Consults Requested none ASA ASA2 Proposed Anesthesia Risk / Benefits Reviewed With: PT / POA / Parent / Guardian, Accepts Plan and Informed Consent Obtained History Surgery Operation Date: 04/30/19 11:20 Proposed Procedures p Left Thoroscopy with Decortication - Max Villagomez MD, FACS Height/Weight Height: 6 ft 2 in Weight: 85 kg Allergies Allergy/AdvReac Type Severity Reaction Status Date / Time No Known Allergies Allergy Unverified 04/28/19 00:42 Medications Home Medications Medication Instructions Recorded Confirmed Last Taken ipratropium-albuterol 3 ml INHALATION QID PRN 04/28/19 04/28/19 04/27/19 levalbuterol tartrate [Xopenex HFA] 2 inh INHALATION QID 04/28/19 04/28/19 04/27/19 Active Medications Generic Name Dose Route Start Last Admin Trade Name Freq PRN Reason Stop Dose Admin Acetaminophen 650 mg 04/28/19 05:01 04/28/19 18:03 Tylenol PO 05/28/19 05:00 650 mg Q4H PRN Administration Pain or Fever Levofloxacin/Dextrose 750 mg in 150 mls @ 100 mls/hr 04/28/19 08:00 04/29/19 10:45 Levaquin/D5w IV 05/05/19 07:59 Infused Q24H TASIA Infusion Ketorolac Tromethamine 30 mg 04/28/19 05:01 04/29/19 21:14 Toradol IV 05/03/19 05:00 30 mg Q6H PRN Administration Pain Levalbuterol HCl 2 puffs 04/28/19 09:00 04/29/19 21:07 Xopenex Hfa INH 05/28/19 08:59 2 puffs QID TASIA Administration NPO Date Last Intake of Fluids: 04/30/19 Time Last Intake of Fluids: 06:00 Date Last Intake of Solids: 04/29/19 Time Last Intake of Solids: 17:00 Past Medical History Medical History Tobacco use disorder No significant past surgical history Exercise / Class Metabolic Activity II 4-5 Yardwork/Stairs/Walk up hill Past Anesthesia History No Hx of Anesthesia Complications and No Family Hx of Anesthesia Complications History of PONV No Hx of PONV and No Hx of Motion Sickness Social History Smoking Status: Current every day smoker Do You Dip or Chew Tobacco: No Alcohol Intake Frequency Comment: [facility] substance use type: unknown Physical Exam Vital Signs Last Vital Signs Temp 37 C 04/30/19 08:07 Pulse 84 04/30/19 08:07 Resp 18 04/30/19 08:07 BP 123/82 04/30/19 08:07 Pulse Ox 96 04/30/19 08:07 ENMT Mouth: no TMJ abnormality Thyromental Distance: > or= 3.5 Finger Breadths Mallampati Class: II Neck normal visual inspection Respiratory normal respiratory effort Auscultation: lungs clear to auscultation bilaterally Cardiovascular Rate/Rhythm: regular rate and regular rhythm Heart Sounds: no murmur Vessels: no carotid bruit Neurologic moves all extremities Psychiatric Orientation: alert and oriented x 3 Testing Laboratory Results 04/30/19 06:06 04/29/19 05:11 Urine Color Yellow 04/28/19 05:00 Urine Appearance Clear (Clear) 04/28/19 05:00 Urine pH 7.5 (4.5-7.5) 04/28/19 05:00 Ur Specific [place] 1.025 (1.000-1.030) 04/28/19 05:00 Urine Protein Negative (Negative) 04/28/19 05:00 Urine Glucose (UA) Negative (Negative) 04/28/19 05:00 Urine Ketones Negative (Negative) 04/28/19 05:00 Urine Nitrite Negative (Negative) 04/28/19 05:00 Ur Leukocyte Esterase Negative (Negative) 04/28/19 05:00 Urine WBC (Auto) 1-5 /hpf (0-5) 04/28/19 05:00 Urine RBC (Auto) >30 /hpf (0-4) H 04/28/19 05:00 U Hyaline Cast (Auto) 1-5 /lpf (0-5) 04/28/19 05:00 U Epithel Cells (Auto) 0-5 /lpf (0-5) 04/28/19 05:00 Urine Bacteria (Auto) Negative (Negative) 04/28/19 05:00 04/28/19 12:15 Gram Stain - Final Sputum, Expectorated Sputum Culture - Final Moderate normal audi. 04/28/19 00:37 Aerobic Blood Culture - Preliminary Blood No growth in Aerobic bottle after 48 hours. Anaerobic Blood Culture - Preliminary No growth in Anaerobic bottle after 48 hours. 04/28/19 00:53 Aerobic Blood Culture - Preliminary Blood No growth in Aerobic bottle after 48 hours. Anaerobic Blood Culture - Preliminary No growth in Anaerobic bottle after 48 hours.
[2019-04-30] MEDS ORDERED: fentaNYL citrate 100 MCG/2 ML VIAL ONE ×2 (08:35→11:32)
[2019-04-30] MEDS ORDERED: ATROPINE SULFATE 0.1 MG/ML 10ML SYR IV PRN (08:35)
[2019-04-30] MEDS ORDERED: MIDAZOLAM HCL 1 MG/ML 2ML VIAL ONE (08:35)
[2019-04-30] MEDS ORDERED: ePHEDrine sulfate 50 MG/ML AMP IV PRN (08:35)
[2019-04-30] MEDS ORDERED: HYDROmorphone INJ 1 MG/ML SYRINGE IV PRN (08:35)
[2019-04-30] MEDS ORDERED: BUPIVACAINE LIPOSOME 1.3% 266 MG/20 ML VIAL ONE (08:43)
[2019-04-30] MEDS ORDERED: SODIUM CHLORIDE 0.9% PF 50 ML VIAL ONE (08:43)
[2019-04-30] MEDS ORDERED: BUPIVACAINE 0.5 % 5 MG/1 ML MPF 30ML VIAL ONE (08:43)
[2019-04-30] MEDS ORDERED: ONDANSETRON INJ 2 MG/ML 2 ML VIAL ONE (10:00)
[2019-04-30] MEDS ORDERED: NEOSTIGMINE METHYLSULFATE 5 MG/5 ML SYR ONE (10:00)
[2019-04-30] MEDS ORDERED: GLYCOPYRROLATE 0.2 MG/ML VIAL ONE (10:00)
[2019-04-30] MEDS ORDERED: DEXAMETHASONE SOD INJ 4 MG/ML VIAL ONE ×2 (10:00)
[2019-04-30] MEDS ORDERED: CEFAZOLIN 250 MG/ML 1 GM VIAL ONE (10:00)
[2019-04-30] MEDS ORDERED: PROPOFOL IV EMULSION 10 MG/ML 20 ML VIAL IV ONE ×2 (10:00→11:33)
[2019-04-30] MEDS ORDERED: LIDOCAINE HCL 2% 2 ML VIAL/AMP(20MG/ML) INFIL ONE (10:00)
[2019-04-30] MEDS ORDERED: PHENYLEPHRINE 100MCG/ML 5ML SYR ONE ×2 (10:16→11:22)
[2019-04-30] MEDS ORDERED: ROCURONIUM BROMIDE 10 MG/ML 5 ML VIAL ONE (10:26)
[2019-04-30] MEDS ORDERED: CEFAZOLIN 2000MG 2,000 MG/15 ML SYR IV ONE (10:27)
[2019-04-30] MEDS ORDERED: ePHEDrine sulfate 50 MG/ML SYR ONE (11:12)
--- NOTE | 2019-04-30 11:30 | Post Operative Brief Note ---
Immediate Post Op Note v1 Date of Surgery April 30, 2019 Pre & Post Diagnosis Operation Date: 04/30/19 11:20 Pre-Op Diagnosis: Left lower lobe empyema Post-Op Diagnosis: Left lower lobe empyema Procedure Operation Date: 04/30/19 11:20 Actual Procedures p Left Video Assited Thoroscopy with Decortication(Left) - Max Villagomez MD, FACS Surgeon Max Villagomez MD, FACS Building Maintenance Technician Sarbjit ESTES Estimated Blood Loss 75 Findings Consistent with Post-Op Diagnosis Drains Chest Tube (24 Fr. Thal)
[2019-04-30] MEDS ORDERED: METOCLOPRAMIDE HCL INJ 5 MG/ML 2 ML VIAL IV ONE (12:00)
--- NOTE | 2019-04-30 12:15 | XRay Report ---
XR chest 1V portable CLINICAL HISTORY: decortication postoperative COMPARISON STUDY: 04/28/2019 FINDINGS: Postoperative changes left lung base with placement of a left-sided chest tube. Trace subcu taneous emphysema. No evidence for pneumothorax. IMPRESSION: 1. Postoperative changes left hemithorax. 2. Chest tube position is good with no significant postprocedural pneumothorax. 3. Trace subcutaneous emphysema The above report was generated using voice recognition software. It may contain grammatical, syntax or spelling errors. Electronically signed by: Igor Gupta M.D. 04/30/2019 12:13 PM
[2019-04-30] MEDS: LEVALBUTEROL TARTRATE 15 GM HFA.AER.AD INH SCH ×4 (12:42→21:34)
--- NOTE | 2019-04-30 13:38 | Anesthesiology Progress Note ---
Date of Service April 30, 2019 Anesthesia Post Procedure Vital Signs Vital Signs: Temp Pulse Pulse Pulse Resp BP Pulse Ox 04/30/19 12:35 36.4 C L 86 14 127/84 94 04/30/19 12:25 93 H 15 114/76 93 04/30/19 12:15 80 15 105/74 95 04/30/19 12:05 83 18 95/68 L 96 04/30/19 11:55 94 H 18 108/65 93 04/30/19 11:48 37.0 C 112 H 18 101/70 95 04/30/19 08:07 37 C 84 18 123/82 96 04/30/19 07:20 36.6 C 73 20 131/82 95 04/30/19 07:15 77 04/30/19 04:00 37.1 C 82 18 114/70 94 04/30/19 00:17 80 04/29/19 23:07 36.9 C 82 20 117/72 96 04/29/19 19:25 36.9 C 99 H 18 131/81 94 04/29/19 15:26 37.1 C 90 18 119/77 97 04/29/19 15:11 101 H Pain Intensity Abdomen: Pain Intensity: 0 Transfer of Care Handoff Completed per policy Notes Mental Status: alert / awake / arousable Patient Amnestic to Procedure: Yes Nausea / Vomiting: adequately controlled Pain: adequately controlled Airway Patency, RR, SpO2: stable & adequate BP & HR: stable & adequate Hydration State: stable & adequate Anesthetic Complications: no major complications apparent and Pt Satisfied with anesthetic care
[2019-04-30] MEDS: LEVOFLOXACIN/D5W 750 MG/150 ML BAG IV SCH (14:11)
[2019-04-30] MEDS: D5W AND 1/2NSS 1,000 ML IV SCH (15:58)
[2019-04-30] MEDS: ACETAMINOPHEN 1,000 MG/100 ML VIAL IV SCH (17:27)
[2019-04-30] MEDS: METOCLOPRAMIDE HCL INJ 5 MG/ML 2 ML VIAL IV SCH (17:28)
--- NOTE | 2019-04-30 21:02 | Operative Report ---
DATE OF OPERATION: 04/30/2019 PREOPERATIVE DIAGNOSIS: Left empyema. POSTOPERATIVE DIAGNOSIS: Left empyema. PROCEDURE: 1. Left thoracoscopy with evacuation of pleural contents. 2. Extensive decortication. SURGEON: Max Villagomez MD. MEDICAL BILLING CODER: Brittany Shrestha, physician medical assistant instructor (Mrs. Shrestha was present for the entire case and was instrumental in holding the camera and also for closing the skin incisions at the conclusion). ANESTHESIA: General anesthesia, endotracheal intubation. INDICATION FOR PROCEDURE AND FINDINGS: This is a 43-year-old incarcerated male with a 30-year history of smoking about a pack of cigarettes a day. The patient noted about a week or 10 days or so of rather acute left-sided pleuritic chest pain and cough and was found to have what appears to be an empyema. He has a loculated complex effusion. He has no history of hemoptysis. He did have a productive cough, which appears to have responded to antibiotics. I discussed this case in detail with the patient and on 04/30/2019, we elected to proceed with a thoracoscopy with evacuation of these pleural contents with possible decortication. On 04/30/2019, the patient underwent an uncomplicated left thoracoscopy. I was able to decorticate him nicely. I was quite pleased in the operating room with the resulting expansion of his lung. I did not note an air leak. We had negligible blood loss. He tolerated the procedure quite nicely. DESCRIPTION OF PROCEDURE: The patient was brought to the operating room and laid in supine position. General anesthesia induced, endotracheal intubation performed with a double lumen tube. The patient was placed in the right lateral decubitus position, his left chest was prepped and draped in usual sterile fashion. After appropriate timeout had been called and antibiotics given, a 5 mm port was placed anterior to the latissimus dorsi muscle, an interspace or so above the tip of the scapula. Upon going into the chest, we could see that there were some adhesions of the upper lobe to the chest wall, but we were able to take these down bluntly and entered a pocket of fluid, which we drained out. We drained out a fair amount of fluid and sent it off for cytology as well as Gram stain and culture and sensitivity. I then put another 5 mm port posteriorly after I the lung from the chest wall at this point. Additional 5 mm port, which was posterior to the scapula. With these 2 ports, I was able to place a long Kitner and a 5 mm 30 degree scope, I was able to bluntly take down the lung from the chest wall and off the diaphragm. I then placed a 12 mm port inferiorly. I was then able to push the lung up off of the diaphragm and entered several pockets of fluid which we drained. I then removed a large amount of parietal and then visceral pleural peel. This was a meticulous undertaking, although we really did not get any injuries into the lung and really did not get into any bleeding. After extensively removing all of this in almost a piecemeal fashion, I was quite pleased with the way that the lung expanded. We did not have an air leak. 266 mg of Exparel in 20 mL of solution was mixed with 30 mL of 0.5% bupivacaine and 250 mL of normal saline and used to inject each of the port sites before making the 3 ports. We then performed an intercostal block once we entered the chest and taking down the lung. This went from the 2nd through 11th rib. We injected enough of the Exparel solution between the interspaces to completely fill the interspace. This went all the way from the 2nd through 11th rib. A 24-Kazakh chest tube was placed through the 12 mm port and directed towards the apex and held in place with heavy silk suture. I did close the muscle layer of this incision before putting the chest tube in. This was done with a 0 Vicryl on a V-Loc suture. A 4-0 Monocryl was used in running subcuticular fashion to approximate the wound edges. The patient tolerated well, was extubated in the room. He was transported to the postanesthesia care unit in stable condition. I attest to the content of the Intraoperative Record and any orders documented therein. Any exceptions are noted below. KAJAL
[2019-04-30] MEDS: DOCUSATE SODIUM 100 MG CAP PO SCH (21:34)
[2019-05-01] MEDS: D5W AND 1/2NSS 1,000 ML IV SCH
[2019-05-01] MEDS: KETOROLAC 30 MG/ML VIAL IV PRN
[2019-05-01] MEDS: ACETAMINOPHEN 1,000 MG/100 ML VIAL IV SCH (02:00)
[2019-05-01] MEDS: METOCLOPRAMIDE HCL INJ 5 MG/ML 2 ML VIAL IV SCH (02:00)
[2019-05-01] MEDS: OXYCODONE HCL IR 5 MG TAB (IMMEDIATE RELEASE) PO PRN ×2 (04:51→13:07)
[2019-05-01] MEDS ORDERED: DiphenhydrAMINE HCL 50 MG/ML VIAL IV STA (06:01)
[2019-05-01] MEDS ORDERED: methylPREDNISolone 125 MG/2 ML VIAL IV STA (06:01)
[2019-05-01] MEDS ORDERED: methylPREDNISolone 60 MG in SYRINGE 0 ML IV ONE (06:15)
[2019-05-01 07:16] LABS: BUN Creatinine Ratio 17.7 (10-20); Calcium 8.1 mg/dl (8.5-10.1); Creatinine Clr Calc Pharmacy 104.4 ml/min; Est GFR (African American) 99.6; Est GFR (Non-African American) 85.9; Potassium 3.8 mmol/L (3.5-5.1)
--- NOTE | 2019-05-01 07:31 | XRay Report ---
SINGLE VIEW CHEST CLINICAL HISTORY: Status post decortication. FINDINGS: An AP, portable, upright chest radiograph is compared to study dated 04/30/2019. Correlation is made with chest CT dated 04/28/2019. The examination is degraded by portable technique and patient rotation. The cardiomediastinal silhouette is unremarkable. A chest tube at the left apex is unchang ed in position. No pneumothorax is seen. Left basilar consolidation and a small left pleural effusion persist. The right lung appears clear. No pneumothorax is seen. The bony thorax is grossly intact. S ubcutaneous emphysema is noted along the left chest wall. IMPRESSION: 1. There is a left pleural effusion with left basilar consolidation, similar in appearance to yesterd ay. 2. A left-sided chest tube is unchanged in position. No pneumothorax is seen. Electronically signed by: Romeo Carranza M.D. 05/01/2019 7:30 AM
--- NOTE | 2019-05-01 07:37 | Anesthesiology Progress Note ---
Date of Service May 01, 2019 Anesthesia Post Procedure Vital Signs Vital Signs: Temp Pulse Pulse Resp BP Pulse Ox Pulse Ox 05/01/19 04:44 36.5 C 67 18 125/71 95 05/01/19 00:48 36.5 C 71 16 108/63 97 05/01/19 00:15 97 04/30/19 22:47 36.5 C 79 18 100/67 96 04/30/19 20:45 36.7 C 76 18 105/68 94 04/30/19 18:48 36.8 C 89 18 105/56 L 96 04/30/19 16:47 36.9 C 103 H 18 126/81 94 04/30/19 15:46 36.9 C 94 H 18 100/63 97 04/30/19 14:45 36.7 C 98 H 18 112/68 97 04/30/19 13:58 36.8 C 89 18 115/76 95 04/30/19 12:45 36.6 C 86 18 122/76 94 04/30/19 12:35 36.4 C L 86 14 127/84 94 04/30/19 12:25 93 H 15 114/76 93 04/30/19 12:15 80 15 105/74 95 04/30/19 12:05 83 18 95/68 L 96 04/30/19 11:55 94 H 18 108/65 93 04/30/19 11:48 37.0 C 112 H 18 101/70 95 04/30/19 08:07 37 C 84 18 123/82 96 Pain Intensity Abdomen: Pain Intensity: 0 Left Lateral Chest: Pain Intensity: 4 Notes Mental Status: alert / awake / arousable and participated in evaluation Nausea / Vomiting: adequately controlled Pain: adequately controlled Airway Patency, RR, SpO2: stable & adequate BP & HR: stable & adequate Hydration State: stable & adequate
[2019-05-01] MEDS: DOCUSATE SODIUM 100 MG CAP PO SCH ×2 (09:00→20:31)
[2019-05-01] MEDS: LEVOFLOXACIN/D5W 750 MG/150 ML BAG IV SCH (09:00)
[2019-05-01] MEDS: LEVALBUTEROL TARTRATE 15 GM HFA.AER.AD INH SCH ×4 (09:00→20:30)
[2019-05-01] MEDS: ACETAMINOPHEN 325 MG TAB PO SCH ×3 (09:01→19:54)
--- NOTE | 2019-05-01 11:12 | Hospitalist Progress Note ---
Date of Service May 01, 2019 Assessment & Plan (1) Atypical chest pain: (2) Pleural effusion: (3) Pericardial effusion: (4) Empyema lung: (5) Leukocytosis: Feeling a little better, s/p Decortication by CT Surgery 04/30, Chest in place on the L, Labs checked, CBC today, DC Levaquin and change to Cefepime sec to rash Consult ID for further antibiotics and opinion on rash Follow CXRs, make sure pericardial effusion gone before DC ROS-No Headache, No Visual Changes, No Nausea, No Vomiting, No Fever, No Chills, No Neck Pain or Stiffness, Less Pleuritic Chest Pain, No Palpitations, Less SOB, Less SANCHEZ, No Cough, No Sputum, No Wheezing, No Abdominal Pain, No Diarrhea, No Hematemesis, No Hemoptysis, No Unexpected Weight Loss, No Flank pain, No Melena, No Hematochezia, No Frequency, No Urgency, No Burning, No Hematuria, No Rashes, No Diaphoresis. Appetite is Normal Physical Exam Gen-AAO x 3, NAD, Afebrile Head-NCAT, EOMI, PERRLA, Anicteric Sclera, No Posterior Pharyngeal Erythema Neck-Supple, No JVD, No Thyromegaly, No Masses, No LAD, No Bruits Lungs-L Rales, Left CT in place, No Rhonchi, No Wheezing, No Crepitus, Mild Pleuritic CP Chest-No S4, +S1, +S2, No S3, No Murmurs, No Rubs, No Gallops, No Ectopy Abdomen-Soft, Bowel Sounds Present, Non Tender, Non Distended, No Hepatomegaly, No Splenomegaly, No Palpable Masses, No Rebound, No Rigidity, No Guarding Musculoskeletal-Full Range of Motion Bilaterally, No CVAT Extremities-No Cyanosis, No Clubbing, No Edema Nuero-Cranial Nerves II-XII grossly intact, Motor WNL, DTRs WNL, Strength WNL, Non Focal Psych-Normal Mood (6) Rash and nonspecific skin eruption: Results & Data Vital Signs (Past 12 Hours) Vital Signs Temp Pulse Resp BP Pulse Ox Pulse Ox 05/01/19 08:54 36.6 C 74 16 118/73 96 05/01/19 04:44 36.5 C 67 18 125/71 95 05/01/19 00:48 36.5 C 71 16 108/63 97 05/01/19 00:15 97
[2019-05-01 11:47] LABS: Eosinophils # (auto) 0.01 K/uL (0-0.5); Eosinophils % (auto) 0.1 %; Hematocrit (blood only) 34.4 % (42-52); Hemoglobin 11.6 g/dL (14.0-18.0); Immature Granulocytes # (auto) 0.04 K/uL (0.00-0.02); Immature Granulocytes % (auto) 0.2 %; Lymphocytes # (auto) 0.76 K/uL (1.2-3.4); Lymphocytes % (auto) 4.3 %; Mean Corpuscular Volume 93.7 fL (80-100); Mean Platelet Volume 8.6 fL (7.4-10.4); Monocytes # (auto) 0.63 K/uL (0.11-0.59); Monocytes % (auto) 3.6 %; Neutrophils # (auto) 16.05 K/uL (1.4-6.5); Neutrophils % (auto) 91.8 %; Platelet Count 374 K/uL (130-400); RDW Standard Deviation 47.9 fL (36.4-46.3); Red Blood Count 3.67 M/uL (4.7-6.1); White Blood Count 17.49 K/uL (4.8-10.8)
[2019-05-01 11:48] LABS: Mean Corpuscular Hgb Conc 33.7 g/dL (32-36)
[2019-05-01] MEDS: CEFEPIME 2,000 MG in SYRINGE 7.5 ML IV SCH (13:59)
--- NOTE | 2019-05-01 13:59 | Infectious Disease Consult ---
Date of Consultation May 01, 2019 Assessment & Plan (1) Empyema lung: continue current abx for now. will check legionella antigen as well. will add azithro for atypical coverage, final abx will be determined by culture results. History of Present Illness Attending Physician: Ramone Grajeda DO pt [facility] with increased sob left sided cp, cta in ER negative for PE but left loculated effusion/consolidation noted. Had been on Augmentin captain waiter, tolerating well but no better. having fevers as well. WBC elevated on arrival, placed on IV steroids and IV abx, wbc increased today, ? steroid related. Sputum and blood cultures negative. Had thoracic surgery eval, underwent VATS and chest tube placement yesterday, tolerated well. tube remains in place. lung and pleural fluid cultures pending, gram stain negative, afebrile since admission. had a rash on b/l antecubital fossa this am, min itching, now alsmost resolved. Changed from levaquin to cefepime, tolerating well. ID consulted for further abx recs. Pt states min tenderness at chest tube insertion site but overall significantly better today. Denies f/c. Denies cp, sob, wheeze, breathing much improved s/p VATS. no abd pain, no n/v/d, tolerating abx. no gu symptoms. Cultures negative to date. Allergies Allergy/AdvReac Type Severity Reaction Status Date / Time No Known Allergies Allergy Unverified 04/28/19 00:42 Home Medications Home Medications Medication Instructions Recorded Confirmed Type ipratropium-albuterol 3 ml INHALATION QID PRN 04/28/19 04/28/19 History levalbuterol tartrate [Xopenex HFA] 2 inh INHALATION QID 04/28/19 04/28/19 History Patient History Medical History Tobacco use disorder No significant past surgical history Social History Preferred Language: Upper Sorbian Communication Ability: Effective Beliefs That Will Affect Care: None Current Living Situation: Other Current Living Situation Comment: nieves Feels Safe at Home: Yes Smoking Status: Current every day smoker Do You Dip or Chew Tobacco: No Second Hand Exposure: No Review of Systems Review of Systems: All systems reviewed & are unremarkable except as noted in HPI & below Physical Exam Constitutional: WD/WN, vitals as above Eyes: PERRL, conjunctivae normal, anicteric sclerae ENMT: external ear and nose normal, oropharynx normal Neck: normal visual inspection Respiratory: normal respiratory effort, lungs clear to auscultation left chest tube with serosnag drainage Cardiovascular: RRR, no murmur, no edema Gastrointestinal (Abdomen): normal bowel sounds, soft, nontender, no hepatosplenomegaly Musculoskeletal: no cyanosis or clubbing, extremities motor strength 5/5 Skin: no rashes, warm and dry Psychiatric: A+Ox3, euthymic affect Results & Data Vital Signs (Past 12 Hours) Vital Signs Temp Pulse Resp BP Pulse Ox 05/01/19 12:45 36.6 C 96 H 16 105/64 96 05/01/19 08:54 36.6 C 74 16 118/73 96 05/01/19 04:44 36.5 C 67 18 125/71 95 Laboratory Results Microbiology 04/30/19 Unknown Lung,Left Gram Stain - Final 04/30/19 Unknown Lung,Left Aerobic and Anaerobic Culture - Preliminary No growth to date. 04/30/19 Unknown Pleural Fluid Gram Stain - Final 04/30/19 Unknown Pleural Fluid Aerobic and Anaerobic Culture - Preliminary No growth to date. 04/30/19 Unknown Lung,Left Acid Fast Bacilli Smear - Final 04/30/19 Unknown Pleural Fluid Acid Fast Bacilli Smear - Final 04/30/19 Unknown Pleural Fluid Fungal Smear - Final 04/30/19 Unknown Lung,Left Fungal Smear - Final 04/28/19 12:15 Sputum, Expectorated Gram Stain - Final 04/28/19 12:15 Sputum, Expectorated Sputum Culture - Final Moderate normal audi. 04/28/19 00:37 Blood Aerobic Blood Culture - Preliminary No growth in Aerobic bottle after 48 hours. 04/28/19 00:37 Blood Anaerobic Blood Culture - Preliminary No growth in Anaerobic bottle after 48 hours. 04/28/19 00:53 Blood Aerobic Blood Culture - Preliminary No growth in Aerobic bottle after 48 hours. 04/28/19 00:53 Blood Anaerobic Blood Culture - Preliminary No growth in Anaerobic bottle after 48 hours.
[2019-05-01] MEDS: methylPREDNISolone 60 MG in SYRINGE 0 ML IV SCH ×2 (14:00→21:08)
[2019-05-01] MEDS: AZITHROMYCIN 250 MG TAB PO SCH (14:25)
[2019-05-02] MEDS: CEFEPIME 2,000 MG in SYRINGE 7.5 ML IV SCH (01:06)
[2019-05-02] MEDS: ACETAMINOPHEN 325 MG TAB PO SCH ×3 (01:06→13:00)
[2019-05-02] MEDS: OXYCODONE HCL IR 5 MG TAB (IMMEDIATE RELEASE) PO PRN (04:23)
[2019-05-02] MEDS: methylPREDNISolone 60 MG in SYRINGE 0 ML IV SCH (05:14)
--- NOTE | 2019-05-02 07:19 | XRay Report ---
XR chest 1V portable HISTORY: 43 years-old Male decortication postoperative changes of the left lung COMPARISON: Chest radiograph 05/01/2019 TECHNIQUE: Portable AP view of the chest FINDINGS: Cardiomediastinal and hilar silhouettes are within normal limits. Postoperative changes of the left l jorge l with stable positioning of the left-sided chest tube. No definite pneumothorax identified. Mild s ubcutaneous emphysema about the lateral left chest wall. Persistent left lung base opacities with sma ll left pleural effusion. Right lung is clear. Bones appear grossly intact. IMPRESSION: 1. Postoperative changes of the left lung with stable positioning of the left-sided chest tube. No de finite pneumothorax identified. 2. Persistent small left pleural effusion with left lung base opacities. The above report was generated using voice recognition software. It may contain grammatical, syntax o r spelling errors. Electronically signed by: Fermin Plascencia M.D. 05/02/2019 7:18 AM
[2019-05-02 07:20] VITALS: O2SAT 96
[2019-05-02 07:57] LABS: Mean Corpuscular Hgb Conc 33.3 g/dL (32-36); Mean Platelet Volume 9.1 fL (7.4-10.4); Platelet Count 420 K/uL (130-400); RDW Coefficient of Variation 14.2 % (11.5-14.5); RDW Standard Deviation 48.5 fL (36.4-46.3); Red Blood Count 3.55 M/uL (4.7-6.1); White Blood Count 22.03 K/uL (4.8-10.8)
[2019-05-02] MEDS ORDERED: AMOXICILLIN/CLAVULANATE 875 MG TAB PO SCH (08:00)
--- NOTE | 2019-05-02 08:11 | XRay Report ---
XR chest 1V portable HISTORY: 43 years-old Male tube removal status post removal of left-sided chest tube COMPARISON: Chest radiograph of same day at 7:00 AM TECHNIQUE: Portable AP view of the chest FINDINGS: Cardiomediastinal and hilar silhouettes are within normal limits. Status post removal of the left-jordan ed chest tube. No pneumothorax. Mild residual subcutaneous emphysema about the lateral left chest wal l. Small left pleural effusion with persistent left lung base opacities. Mild degenerative changes of the shoulders. IMPRESSION: 1. Status post removal of the left-sided chest tube. No pneumothorax. 2. Unchanged small left pleural effusion with left lung base opacities. The above report was generated using voice recognition software. It may contain grammatical, syntax o r spelling errors. Electronically signed by: Fermin Plascencia M.D. 05/02/2019 8:10 AM
[2019-05-02 08:25] LABS: Basophils # (auto) 0.01 K/uL (0-0.2); Immature Granulocytes # (auto) 0.08 K/uL (0.00-0.02); Immature Granulocytes % (auto) 0.4 %; Lymphocytes # (auto) 1.14 K/uL (1.2-3.4); Lymphocytes % (auto) 5.2 %; Monocytes # (auto) 0.57 K/uL (0.11-0.59); Monocytes % (auto) 2.6 %; Neutrophils # (auto) 20.23 K/uL (1.4-6.5); Neutrophils % (auto) 91.8 %; Toxic Granulation 1+
[2019-05-02] MEDS: LEVALBUTEROL TARTRATE 15 GM HFA.AER.AD INH SCH ×3 (08:32→18:19)
[2019-05-02] MEDS: AZITHROMYCIN 250 MG TAB PO SCH (08:33)
[2019-05-02] MEDS: DOCUSATE SODIUM 100 MG CAP PO SCH (08:33)
[2019-05-02 08:41] LABS: Albumin Globulin Ratio 0.5 (0.9-2); Albumin Level 2.1 gm/dl (3.4-5.0); BUN Creatinine Ratio 21.4 (10-20); Bilirubin,Total 0.2 mg/dl (0.2-1); Calcium 8.6 mg/dl (8.5-10.1); Creatinine Clr Calc Pharmacy 123.1 ml/min; Est GFR (African American) 120.5; Globulin 4.3 gm/dl (2.5-4.0); Potassium 4.5 mmol/L (3.5-5.1); Total Protein 6.4 gm/dl (6.4-8.2)
--- NOTE | 2019-05-02 12:51 | Infectious Disease Progress Nt ---
Date of Service May 02, 2019 Assessment & Plan (1) Empyema lung: continue abx, would give 5 days azitro and 3 weeks Augmentin, continue to follow cultures, all negative to date. Subjective pt chest tube removed. remains afebrile. All blood and OR cultures remain negative. was narrowed to Augmentin, tolerating well. wbc increased to 22, IV steroids recently stopped. Results & Data Vital Signs (Past 12 Hours) Vital Signs Temp Pulse Resp BP Pulse Ox 05/02/19 07:17 36.6 C 63 18 122/75 96 05/02/19 05:01 36.5 C 59 L 18 124/72 97 Laboratory Results Microbiology 04/30/19 Unknown Lung,Left Gram Stain - Final 04/30/19 Unknown Lung,Left Aerobic and Anaerobic Culture - Preliminary No growth to date. 04/30/19 Unknown Pleural Fluid Gram Stain - Final 04/30/19 Unknown Pleural Fluid Aerobic and Anaerobic Culture - Preliminary No growth to date. 04/30/19 Unknown Lung,Left Acid Fast Bacilli Smear - Final 04/30/19 Unknown Pleural Fluid Acid Fast Bacilli Smear - Final 04/30/19 Unknown Pleural Fluid Fungal Smear - Final 04/30/19 Unknown Lung,Left Fungal Smear - Final 04/28/19 12:15 Sputum, Expectorated Gram Stain - Final 04/28/19 12:15 Sputum, Expectorated Sputum Culture - Final Moderate normal audi. 04/28/19 00:37 Blood Aerobic Blood Culture - Preliminary No growth in Aerobic bottle after 48 hours. 04/28/19 00:37 Blood Anaerobic Blood Culture - Preliminary No growth in Anaerobic bottle after 48 hours. 04/28/19 00:53 Blood Aerobic Blood Culture - Preliminary No growth in Aerobic bottle after 48 hours. 04/28/19 00:53 Blood Anaerobic Blood Culture - Preliminary No growth in Anaerobic bottle after 48 hours.
--- NOTE | 2019-05-02 14:58 | Hospitalist Progress Note ---
Date of Service May 02, 2019 Assessment & Plan (1) Empyema lung: Developed a cough several days prior to admission and was treated with amoxicillin/clavulanic acid. Presented to ED on 04/28 with persistent cough and pleuritic chest pain. CTA of chest was negative for pulmonary embolism, but demonstrated a loculated left pleural effusion with associated consolidation at the left base. (There was also concern about possible moderate pericardial effusion, but it was felt not to be present after further review.) Received IV antibiotics, initially with vancomycin and piperacillin/tazobactam. Pulmonary Medicine, Thoracic Medicine, and ID were consulted. And [place] to have pneumonia with empyema. Thoracoscopy with extensive decortication performed by Dr. Villagomez on 04/30/2019. Patient did well after the procedure and the chest tube was removed on 05/02/2019. Cultures from pleural fluid were sterile, but patient had received antibiotics. 7-day course of azithromycin (5 more days) and 3-week course of amoxicillin/clavulanic acid recommended by ID. Thoracic Surgery follow-up with Dr. Villagomez in 2 weeks with follow-up chest x- ray at that time. (2) Rash and nonspecific skin eruption: Developed extensive rash 05/01 a few hours after receiving cefepime. Rash resolved after receiving diphenhydramine and steroids. Received first dose of amoxicillin / clavulanic acid 05/02 and developed recurrent rash on his lower extremities about an hour later. Received a dose of diphenhydramine with prompt resolution. [place] unlikely that rash secondary to amoxicillin/clavulanic acid. Continue amoxicillin/clavulanic acid with caution; will need to consider alternative antibiotics if rash recurs with repeat administrations. (3) DVT prophylaxis: SCD's ordered. (4) Discharge planning issues: Returning to [facility] under the care of the medical staff there. Case discussed with their physician. Thoracic Surgery follow-up with Dr. Villagomez in 2 weeks. Please make arrangements for his appointment. Subjective Recheck for empyema. Patient seen in their room around 11:30. Overall, feels better. Chest tube removed by Thoracic Surgery. No cough or SOB. No fever. Developed extensive rash yesterday morning, a few hours after receiving cefepime. Rash resolved after receiving diphenhydramine and steroids. Received first dose of amoxicillin / clavulanic acid this morning and developed recurrent rash on his lower extremities about an hour later. Received a dose of diphenhydramine with prompt resolution. No nausea, vomiting, diarrhea. Physical Exam Constitutional: no acute distress Respiratory: no respiratory distress Auscultation: lungs clear to auscultation bilaterally Cardiovascular: Rate/Rhythm: regular rate and regular rhythm Vessels: no JVD Extremities: no calf tenderness and no edema Gastrointestinal (Abdomen): normal bowel sounds, soft, nontender, no hepatosplenomegaly Skin: no rashes, warm and dry Psychiatric: Orientation: alert and oriented x 3 Results & Data Vital Signs (Past 12 Hours) Vital Signs Temp Pulse Resp BP Pulse Ox 05/02/19 07:17 36.6 C 63 18 122/75 96 05/02/19 05:01 36.5 C 59 L 18 124/72 97 Laboratory Results Laboratory Results - last 24 hr 05/02/19 05/02/19 07:31 07:31 WBC 22.03 H RBC 3.55 L Hgb 11.0 L Hct 33.0 L MCV 93.0 MCH 31.0 MCHC 33.3 RDW Std Deviation 48.5 H RDW Coeff of [place] 14.2 Plt Count 420 H MPV 9.1 Immature Gran % (Auto) 0.4 Neut % (Auto) 91.8 Lymph % (Auto) 5.2 [place] % (Auto) 2.6 Eos % (Auto) 0.0 Baso % (Auto) 0.0 Immature Gran # (Auto) 0.08 H Neut # (Auto) 20.23 H Lymph # (Auto) 1.14 L [place] # (Auto) 0.57 Eos # (Auto) 0.00 Baso # (Auto) 0.01 Toxic Granulation 1+ Sodium 142 Potassium 4.5 D Chloride 110 H Carbon Dioxide 26 Anion Gap 6.0 BUN 19 H Creatinine 0.89 Est Cr Clr Drug Dosing 123.1 Est GFR ( Amer) 120.5 Est GFR (Non-Af Amer) 104.0 BUN/Creatinine Ratio 21.4 H Glucose 107 H Calcium 8.6 Total Bilirubin 0.2 AST 16 ALT 37 Alkaline Phosphatase 84 Total Protein 6.4 Albumin 2.1 L Globulin 4.3 H Albumin/Globulin Ratio 0.5 L
[2019-05-02 15:42] VITALS: BP 120/70; PULSE 73; TEMP 97.3
--- NOTE | 2019-05-02 16:09 | Discharge Summary ---
Date of Service Date of Admission: 04/28/19 Date of Discharge: 05/02/19 Admission HPI Per Admitting Provider This is a 43-year-old male who comes from the [facility] because of ongoing cough and chest pain. The patient says he started to develop a cough last Tuesday initially coughing with white phlegm and he was given Augmentin, but last night he had a severe coughing fit and he thinks he might have pulled a muscle and he is having chest pain whenever he is lying down; that is bothering him the most, and taking deep breaths is causing chest pain. His coughing was not getting better and getting progressively worse, and he had a mild temp spike in the [facility] today, so he was sent here. His D-dimer is elevated, white count is mildly elevated. Afebrile, hemodynamically stable. A CTA of the chest was done which showed some pleural effusion and pneumonia, so we were called for admission. IV vancomycin and IV Zosyn was given in the ER. The patient is currently resting comfortably but whenever he has cough or whenever he is lying down, there is left-sided chest pain, also when taking deep breath, and he also has a funny feeling in the belly today. Denies any diarrhea or constipation. No black stools or blood in the stools. Normal bladder movements. He said when he was started on antibiotic, he had hematuria, but that was only 1 episode. No burning micturition. He also noticed rash in his legs. He said he was given anti-inflammatory and antibiotics. Possibly medication caused the rash. Denies any headache, no blurred visions, no earache, no runny nose, no sore throat, no difficulty swallowing. Currently, no shortness of breath, no nausea, no vomiting. He smokes 1 pack a day for many years. Admission Exam Per Admitting Provider GENERAL: The patient is of moderate build, not in acute distress. VITAL SIGNS: Temperature 37.4, pulse 94, respiratory rate 22, blood pressure 137/84, oxygen 97% on room air. HEENT: Head atraumatic. Pupils equal, round, and reactive to light. NECK: No JVD, no neck masses, no carotid bruits. CARDIOVASCULAR: S1, S2 heard, regular rate and rhythm, no murmur, no gallop. RESPIRATORY SYSTEM: Normal AP diameter. No accessory muscle use. No wheezing, no crackles. ABDOMEN: Soft, bowel sounds present. Nontender. No distention. CENTRAL NERVOUS SYSTEM: Cranial nerves II-XII grossly intact, nonfocal. EXTREMITIES: Bilateral lower extremity petechial rash seen from below the knees. Principal Diagnosis empyema left lung Discharge Data Allergies Allergy/AdvReac Type Severity Reaction Status Date / Time No Known Allergies Allergy Unverified 04/28/19 00:42 Consultations 04/28/19 03:07 ED Decision to Admit Stat 04/28/19 05:01 Consult Case Management - Discharge Planning Routine 04/28/19 08:00 Consult Pulmonology Routine 04/29/19 10:21 Consult Thoracic Surgery Routine 05/01/19 11:07 Consult Infectious Diseases Routine Procedures Performed Operation Date: 04/30/19 11:20 Actual Procedures p Left Video Assited Thoroscopy with Extensive Decortication(Left) - Max Villagomez MD, FACS Ordered Studies 04/28/19 01:15 CT angio chest PE protocol Urgent Hospital Course (1) Empyema lung: Developed a cough several days prior to admission and was treated with amoxicillin/clavulanic acid. Presented to ED on 04/28 with persistent cough and pleuritic chest pain. CTA of chest was negative for pulmonary embolism, but demonstrated a loculated left pleural effusion with associated consolidation at the left base. (There was also concern about possible moderate pericardial effusion, but it was felt not to be present after further review.) Received IV antibiotics, initially with vancomycin and piperacillin/tazobactam. Pulmonary Medicine, Thoracic Medicine, and ID were consulted. And [place] to have pneumonia with empyema. Thoracoscopy with extensive decortication performed by Dr. Villagomez on 04/30/2019. Patient did well after the procedure and the chest tube was removed on 05/02/2019. Cultures from pleural fluid were sterile, but patient had received antibiotics. 7-day course of azithromycin (5 more days) and 3-week course of amoxicillin/clavulanic acid recommended by ID. Thoracic Surgery follow-up with Dr. Villagomez in 2 weeks with follow-up chest x- ray at that time. (2) Rash and nonspecific skin eruption: Developed extensive rash 05/01 a few hours after receiving cefepime. Rash resolved after receiving diphenhydramine and steroids. Received first dose of amoxicillin / clavulanic acid 05/02 and developed recurrent rash on his lower extremities about an hour later. Received a dose of diphenhydramine with prompt resolution. [place] unlikely that rash secondary to amoxicillin/clavulanic acid (although there could be cross-reactivity to cefepime allergy). Continue amoxicillin/clavulanic acid with caution; will need to consider alternative antibiotics if rash recurs with repeat administrations. (3) Tobacco use disorder: Encourage smoking cessation. (4) DVT prophylaxis: SCD's ordered. (5) Discharge planning issues: Returning to [facility] under the care of the medical staff there. Case discussed with their physician. Thoracic Surgery follow-up with Dr. Villagomez in 2 weeks. Please make arrangements for his appointment. Total Time Total Time Spent Total Time Spent (In Minutes): 45 Discharge Plan Discharge Items [facility] Reason For Visit: cough, chest pain Discharge Diagnosis: empyema left lung Condition: Good Discharge Goals: Decrease discomfort and Improve disease control Activity: Resume your previous activity Non-emergency contact: Primary Care Provider, Hospitalist and Surgeon Call non-emergency contact if: you have any medication questions, your symptoms worsen and you have a fever Follow-up/Referrals: Max Villagomez MD, FACS [Surgeon] - (Please arrange for follow-up appointment in 2 weeks.) [facility] [Primary Care Provider] - Diet: Regular Addtl Provider Instructions: Thank you for receiving this patient in transfer. Please call if you have any questions. Wiley Rudd Prescriptions: New amoxicillin-pot clavulanate [Augmentin] 875-125 mg tablet 1 tab PO BIDM Qty: 41 RF: 0 azithromycin 500 mg tablet 500 mg PO DAILY 5 Days Qty: 5 RF: 0 diphenhydramine HCl [Benadryl] 25 mg capsule 50 mg PO Q6H PRN (Reason: rash) Qty: 10 RF: 0 acetaminophen [Tylenol Extra Strength] 500 mg tablet 1,000 mg PO Q8H PRN (Reason: pain) Qty: 60 RF: 0 Continued ipratropium-albuterol 0.5 mg-3 mg(2.5 mg base)/3 mL Solution For Nebulization 3 ml INHALATION QID PRN (Reason: Shortness Of Breath) RF: 0 levalbuterol tartrate [Xopenex HFA] 45 mcg/actuation Hfa Aerosol Inhaler 2 inh INHALATION QID RF: 0 Stand-Alone Forms: My [facility] Admission Data Admit Date/Time: 04/28/19 03:38 Attending Provider: Wiley Rudd Admit Provider: Milo Edmond Primary Care Provider: Man JARRETT Other Providers: Max Villagomez ; Orlin Castrejon ; Milo Edmond ; Jose Pacheco ; Ramone Grajeda Service: Medical
--- NOTE | 2019-05-02 23:32 | Discharge Summary ---
DATE OF ADMISSION: 04/28/2019 DATE OF DISCHARGE: 05/02/2019 DISCHARGE DIAGNOSES: 1. Left pleural empyema. 2. History of cigarette smoking. HOSPITAL COURSE: This is a 43-year-old inmate who presented with about a week of left-sided pleuritic pain and a cough. He really was not very productive but was started on Augmentin and still had a worsening cough. His pleuritic pain got worse. He was brought to the Emergency Room where he was found to have an elevated white count and a CTA was done which showed a complicated effusion on 04/28/2019. On 04/30/2019, I took the patient to the operating room and performed a left thoracoscopy with an extensive decortication. This is obviously a parapneumonic effusion. Our cultures did not show any organisms which is not surprising; however, the pathology was consistent with an empyema. We were quite pleased with his progress. His incisions were clean. His x-ray improved although he had some pleural changes. I was pleased with the fact that his symptoms of pain greatly improved after the surgery. We removed his chest tube on postop day #2. He will be discharged today on 05/02/2019. I would recommend this patient get at least 2 weeks of antibiotics. We will switch him over to Augmentin. He has no allergies. I will see him back in the office in about 2 weeks with an x-ray. He tolerated this quite well and I expect him to do quite well. KAJAL
== END 2019-05-02 19:05 | DRG 163 ==
LOC: ED 23:54 → 2N 04-28 03:38 → SUATTDRO 04-28 03:38 → 2N 04-28 04:13 → 3N 04-30 13:08